=== PATIENT | female | born 1995 | race Caucasian/White ===

== ENCOUNTER → 2017-11-27 13:45 | Outpatient (CLI) | payer SELFPAY ==
[2017-11-28 14:40] LABS: Chlamydia Trachomatis by PCR Negative (Negative); Neisserai gonorrhoeae by PCR Negative (Negative); Probe Check PASS; Sample Adequacy Control PASS; Specimen Processing Control PASS
[2017-12-04 08:53] LABS: HPV Reflexed? NOT INDICATED
== END ==
PROVIDERS: Visit Provider Obstetrics & Gynecology
DX: Z12.4 Encounter for screening for malignant neoplasm of cervix (principal); Z11.3 Encounter for screening for infections with a predominantly sexual mode of transmission
CPT/HCPCS: 87491; 87591; 88175; G0145

== ENCOUNTER → 2018-05-09 10:44 | Outpatient (CLI) | payer OTHER, SELFPAY | PROVIDERS: Visit Provider Obstetrics & Gynecology | DX: Z36.85 Encounter for antenatal screening for Streptococcus B (principal) | CPT/HCPCS: 87077; 87081 ==

== ENCOUNTER 2018-06-03 10:20 | Inpatient (IN) | payer SELFPAY ==
[2018-06-03 10:35] VITALS: BMI 29.2
[2018-06-03] MEDS: Lactated Ringers 1,000 ML 50 ML IV (10:55)
[2018-06-03 11:49] LABS: Hematocrit 33.2 % (37-47); Hemoglobin 11.4 g/dl (12.0-15.0); Mean Corp Hgb Conc 34.3 g/gl (32-36); Mean Corpuscular Hgb 30.6 pg (27.0-32.0); Mean Corpuscular Volume 89.2 fL (81-99); Mean Platelet Vol. 8.4 fl (6.2-12.0); Platelet Count 236 K/mm3 (150-450); RBC Distribution Width CV 14.3 % (11.6-14.6); RBC Distribution Width SD 45.1 fl (35.1-43.9); Red Blood Count 3.72 M/mm3 (4.2-5.4); White Blood Count 12.3 K/mm3 (4.4-11.0)
[2018-06-03 11:52] LABS: Scan Indicated on CBC? Y/N NO
[2018-06-03] MEDS: Oxytocin 30 units/NS 500 ml 30 UNITS/500 ML IV.SOLN 334 UNITS IV (14:20)
[2018-06-03] MEDS: Methylergonovine 0.2 MG/ML Ampul IM (14:26)
--- NOTE | 2018-06-03 14:30 | PCM.OB.VAG ---
Vaginal Delivery Maternal Presentation: Active Labor, Spontaneous Rupture of Membranes Amniotic Membrane Rupture Type: Spontaneous at home Amniotic Fluid Description: Clear Final VEGA: 06/06/18 Final VEGA Source: US <20 weeks Gestational age: 39 Weeks and 4 Days Date of Procedure: 06/03/18 Pre-Operative Diagnosis: IUP Post-Operative Diagnosis: IUP Surgery/ Procedure Performed: Spontaneous Vaginal Delivery Type of Anesthesia: None, - - Nitrous Oxide Description of Procedure: Spontaneous vaginal delivery of a viable male with Apgars of 9/9 from an occiput anterior presentation with clear amniotic fluid and normal three-vessel placenta. Cord around the neck x2 loose. No episiotomy. Second-degree midline laceration repaired with 3-0 Vicryl suture. Sponges okay. Delivery physician: Rogerio Levin MD. Presentation: Vertex Placental Delivery Description: Spontaneous Placenta Disposition: [facility] Cord Vessel Description: 3 Vessels Cord Entanglement: Around neck x 2, loose Estimated Blood Loss: 250 cc A gender: Male (1 minute): 9 (5 minute): 9 Laceration: Midline, 2nd degree Medications given after delivery: IV Pitocin, IM Methergin Complications: None
--- NOTE | 2018-06-03 14:34 | PCM.DCVAG ---
Discharge Diet: No Restrictions Discharge Activity: May not drive while taking narcotic pain medications., May Shower, May Take a Tub Bath May resume sexual activity in: 4-6 weeks Additional Activity Instructions:: Nothing in the vagina for 4-6 weeks. You may return to work/school in 6 weeks. Call your doctor if you observe: Fever of 101 or Higher, Inability to urinate, Inability to have a bowel movement, Using more than one pad per hour Additional Instructions: If you experience any of the following, contact your healthcare provider. Bleeding that soaks a pad every hour for 2 hours Unrelieved incision or abdominal pain Swelling, redness, discharge or bleeding from your incision or episiotomy site Your incision begins to separate Problems urinating (including inability to urinate or burning while urinating). Visual changes Severe headache Flu-like symptoms Pain or redness in one of both of your breasts Pain, warmth, tenderness or swelling in your legs, especially the calf area Frequent nausea and vomiting Symptoms of depression or anxiety If you experience any of the following, call 911 or go to the nearest Emergency Room. Chest pain Problems breathing Seizure activity Partial or complete paralysis of a body part, slurred speech, weakness or drooping of the face, or a sudden inability to walk or hold your balance Allergies/Adverse Reactions: Allergies No Known Allergies Allergy (Verified 02/23/16 15:07) Medications to take at Discharge Fish Oil/Borage/Flax/Om3,6,9 1 [[place] 3-6-9 1,200 mg Softgel] 1,200 mg PO DAILY 06/03/18 Pnv No.95/Ferrous Fum/Folic AC [ Caplet] 1 each PO DAILY 06/03/18 Please Follow Up With: Rogerio Levin MD - [phone] When: Call to make an appointment with your doctor in 6 weeks. Primary Care Physician: Arcelia Tavares MD [Primary Care Provider] - Test Results: Test results from this visit will be discussed in further detail at your follow-up appointment, if applicable.
--- NOTE | 2018-06-03 14:35 | DCINST_ITS ---
Discharge Diet: No Restrictions Discharge Activity: May not drive while taking narcotic pain medications., May Shower, May Take a Tub Bath May resume sexual activity in: 4-6 weeks Additional Activity Instructions:: Nothing in the vagina for 4-6 weeks. You may return to work/school in 6 weeks. Call your doctor if you observe: Fever of 101 or Higher, Inability to urinate, Inability to have a bowel movement, Using more than one pad per hour Additional Instructions: If you experience any of the following, contact your healthcare provider. * Bleeding that soaks a pad every hour for 2 hours * Unrelieved incision or abdominal pain * Swelling, redness, discharge or bleeding from your incision or episiotomy site * Your incision begins to separate * Problems urinating (including inability to urinate or burning while urinating). * Visual changes * Severe headache * Flu-like symptoms * Pain or redness in one of both of your breasts * Pain, warmth, tenderness or swelling in your legs, especially the calf area * Frequent nausea and vomiting * Symptoms of depression or anxiety If you experience any of the following, call 911 or go to the nearest Emergency Room. * Chest pain * Problems breathing * Seizure activity * Partial or complete paralysis of a body part, slurred speech, weakness or drooping of the face, or a sudden inability to walk or hold your balance Allergies/Adverse Reactions: Allergies No Known Allergies Allergy (Verified 02/23/16 15:07) Medications to take at Discharge Fish Oil/Borage/Flax/Om3,6,9 1 [[place] 3-6-9 1,200 mg Softgel] 1,200 mg PO DAILY 06/03/18 Pnv No.95/Ferrous Fum/Folic AC [ Caplet] 1 each PO DAILY 06/03/18 Please Follow Up With: Rogerio Levin MD - [phone] When: Call to make an appointment with your doctor in 6 weeks. Primary Care Physician: Arcelia Tavares MD [Primary Care Provider] - Test Results: Test results from this visit will be discussed in further detail at your follow- up appointment, if applicable.
[2018-06-03] MEDS: Oxytocin 30 units/NS 500 ml 30 UNITS/500 ML IV.SOLN 167 UNITS IV (15:00)
[2018-06-03] MEDS: Ibuprofen 600 MG Tablet PO (15:25)
[2018-06-03 16:22] VITALS: BP 131/79; PULSE 87; RESP 14; TEMP 36.4
[2018-06-03] MEDS: 0.9% Saline Lock 10 ML Syringe IV (16:25)
[2018-06-03 20:45] VITALS: BP 112/67; PULSE 102; RESP 16; TEMP 36.9; O2SAT 94
--- NOTE | 2018-06-03 20:45 | NURSING ---
Patient up to bathroom independently, tolerated well. Patient voided in toilet, amount not measured. Patient states she is emptying bladder well. IV discontinued.
[2018-06-03 23:40] VITALS: BP 111/69; PULSE 87; RESP 16; TEMP 36.6; O2SAT 95
[2018-06-04 03:20] VITALS: BP 93/55; PULSE 86; RESP 16; TEMP 36.4; O2SAT 96
--- NOTE | 2018-06-04 05:01 | PCM.PN.OB ---
Subjective: Patient without complaints. Breast-feeding going well. Wants to go home later today if baby is able to go. - Physical Exam Vital Signs Temp Pulse Resp BP Pulse Ox 97.6 F L 86 16 93/55 L 96 06/04/18 03:20 06/04/18 03:20 06/04/18 03:20 06/04/18 03:20 06/04/18 03:20 Oxygen Delivery Method Room Air Weight: 170 lb 10.205 oz Body Mass Index (BMI) 29.2 Intake and Output for Last 24 Hours 06/02/18 06/03/18 06/04/18 23:59 23:59 23:59 Intake Total 1754 / 1754 Output Total 700 / 700 Balance 1054 / 1054 Laboratory Tests Past 24 Hrs 06/03/18 06/03/18 10:55 10:55 WBC 12.3 H RBC 3.72 L Hgb 11.4 L Hct 33.2 L MCV 89.2 MCH 30.6 MCHC 34.3 RDW 14.3 RDW Differential 45.1 H Plt Count 236 MPV 8.4 Blood Type A NEGATIVE Antibody Screen NEGATIVE Medical Necessity - Tobacco Use Smoking Status: Never smoker Assessment/Plan Doing well day #1. Routine home-going instructions given. We will released to home later today if baby is able to be released.
[2018-06-04 07:58] VITALS: BP 105/66; PULSE 88; RESP 16; TEMP 36.9; O2SAT 95
[2018-06-04] MEDS: Ibuprofen 600 MG Tablet PO (08:35)
[2018-06-04] MEDS: Senna/Docusate Sodium 1 Tablet PO (08:35)
[2018-06-04 11:51] VITALS: BP 112/76; PULSE 72; RESP 14; TEMP 36.7; O2SAT 96
[2018-06-04 16:00] VITALS: BP 114/72; PULSE 84; RESP 16; TEMP 36.9
== END 2018-06-04 18:10 | disposition home or self-care (01) | DRG 807 ==
PROVIDERS: Obstetrics & Gynecology; Admitting Provider Obstetrics & Gynecology; Referring Provider Obstetrics & Gynecology; Visit Provider Obstetrics & Gynecology
DX: O69.82X0 Labor and delivery complicated by other cord entanglement, without compression, not applicable or unspecified (principal); Z37.0 Single live birth; O70.1 Second degree perineal laceration during delivery; Z3A.39 39 weeks gestation of pregnancy
CPT/HCPCS: 59025; 59050; 85027; 86850; 86900; 99218; J7120; A4216; G0378